=== PATIENT | female | born 2000 | race African-American/Black ===

== ENCOUNTER 2019-11-07 09:40 | Inpatient (IN) | payer OTHER ==
[~2019-11-07] VITALS: Ht 167.6 cm; Wt 63.5 kg
[2019-11-07 10:44] LABS: HEMATOCRIT. 35.5 % (36.0-48.0); HEMOGLOBIN. 12.2 g/dL (12.0-16.0); MEAN CORPUSCULAR HEMOGLOBIN 28.9 pg (28.0-32.0); MEAN CORPUSCULAR VOLUME 84.2 fL (81.0-99.0); PLATELET 318 x1000/uL (130-400); RED BLOOD CELL COUNT 4.21 mill/uL (4.2-5.4); RED CELL DISTRIBUTION WIDTH 13.9 % (11.6-14.6)
[2019-11-07 10:54] LABS: CHLORIDE 109 mEq/L (98-107)
[2019-11-07 10:55] LABS: PROTHROMBIN TIME 10.9 sec (9.6-11.0)
[2019-11-07 11:26] LABS: CLARITY URINE CLOUDY (CLEAR); COLOR URINE YELLOW (YELLOW); KETONES URINE NEGATIVE (NEGATIVE); LEUKOCYTE ESTERASE URINE 3+ (NEGATIVE); NITRITE URINE NEGATIVE (NEGATIVE); OCCULT BLOOD URINE TRACE (NEGATIVE); PROTEIN URINE NEGATIVE (NEGATIVE); SPECIFIC GRAVITY URINE 1.013 (1.005-1.030); UROBILINOGEN URINE 0.2 E.U./dL (0.2-1.0)
[2019-11-07 12:09] LABS: PLATELET ESTIMATE NORMAL
[2019-11-07] MEDS ORDERED: CEFTRIAXONE 1 G PREMIX 50 ML IV ONE (13:00)
[2019-11-07] MEDS ORDERED: MORPHINE SULFATE 4 MG/ML CPJ (NOT FOR IM USE) IV STA (13:04)
[2019-11-07] MEDS ORDERED: ONDANSETRON HCL 4MG/2ML INJ IV STA (13:04)
[2019-11-07] MEDS ORDERED: SODIUM CHLORIDE 0.9% 1000ML BAG (SEPSIS BOLUS) IV ONE (15:00)
[2019-11-07] MEDS ORDERED: MAGNESIUM/ALUMINUM HYDROXIDE/SIMETHICONE 30ML UDC PO ONE (15:00)
[2019-11-07] MEDS ORDERED: ONDANSETRON HCL 4MG/2ML INJ IV NR (15:15)
[2019-11-07] MEDS ORDERED: ACETAMINOPHEN 325MG TABLET PO STA (18:05)
[2019-11-07] MEDS ORDERED: METRONIDAZOLE 500 MG PREMIX 100 ML IV ONE (18:15)
[2019-11-07] MEDS ORDERED: SKIN ADHESIVE 0.7 GM EA TOP ONE ×2 (22:23→23:46)
[2019-11-07] MEDS ORDERED: BUPIVACAINE HCL 0.5% (5MG/ML) 50ML ONE (22:24)
[2019-11-07] MEDS ORDERED: FENTANYL CITRATE/PF 50MCG/ML 2ML VIAL ONE (22:25)
[2019-11-07] MEDS ORDERED: PROPOFOL 200MG/20ML VIAL IV ONE (22:26)
[2019-11-07] MEDS ORDERED: NEOSTIGMINE METHYLSULFATE 1MG/ML 10 ML VIAL ONE (22:26)
[2019-11-07] MEDS ORDERED: GLYCOPYRROLATE 0.2 MG/ML 2ML VIAL ONE ×2 (22:26→23:52)
[2019-11-07] MEDS ORDERED: MIDAZOLAM HCL 2 MG/2 ML VIAL ONE (22:26)
[2019-11-07] MEDS ORDERED: ROCURONIUM BROMIDE 10MG/ML VIAL 5ML IV ONE (22:26)
[2019-11-07] MEDS ORDERED: HYDROCODONE/ACETAMINOPHEN 5/325MG TABLET PO PRN ×2 (23:00)
[2019-11-07] MEDS ORDERED: ONDANSETRON HCL 4MG/2ML INJ IV PRN (23:00)
[2019-11-07] MEDS ORDERED: MORPHINE SULFATE 4 MG/ML CPJ (NOT FOR IM USE) IV PRN (23:00)
[2019-11-07] MEDS ORDERED: MORPHINE SULFATE 2 MG/ML CPJ (NOT FOR IM USE) IV PRN (23:00)
[2019-11-07] MEDS ORDERED: ONDANSETRON HCL 4MG/2ML INJ ONE (23:22)
[2019-11-07] MEDS ORDERED: DEXAMETHASONE 4MG/ML 1ML VIAL ONE (23:22)
[2019-11-07] MEDS ORDERED: DEXT 5%/0.45% NACL KCL 20MEQ/L 1,000 ML IV SCH (23:45)
[2019-11-08 01:30] VITALS: BP 117/66
[2019-11-08] MEDS ORDERED: SODIUM CHLORIDE 0.9% INJ 3ML FLUSH IVF SCH (06:00)
[2019-11-08 08:00] VITALS: BP 107/56
[2019-11-08 12:00] VITALS: BP 96/44
[2019-11-08] MEDS ORDERED: LEVO500T2 MT (12:35)
[2019-11-08] MEDS ORDERED: DEXT 5%/0.45% NACL KCL 20MEQ/L 1,000 ML IV SCH (13:00)
[2019-11-08 20:00] VITALS: BP 96/46
[2019-11-08 21:22] VITALS: BP 96/46
== END 2019-11-08 22:12 | disposition home or self-care (01) | DRG 952 ==
LOC: ER 10:00 → 6EST 22:02 → ENRESERV 22:30
PROVIDERS: ADMIT Internal Medicine; ATTEND Internal Medicine
PROC: 0DTJ4ZZ Resection of Appendix, Percutaneous Endoscopic Approach (ICD-10-PCS; principal; 2019-11-07)
DX: O99.63 Diseases of the digestive system complicating the puerperium (principal); K35.80 Unspecified acute appendicitis; E87.8 Other disorders of electrolyte and fluid balance, not elsewhere classified; O86.20 Urinary tract infection following delivery, unspecified; O90.89 Other complications of the puerperium, not elsewhere classified; O99.355 Diseases of the nervous system complicating the puerperium; G90.8 Other disorders of autonomic nervous system
CPT/HCPCS: 36415; 70480; 71045; 74177; 76705; 76830; 76856; 80053; 81003; 83605; 83880; 84484; 85025; 86850; 86900; 88304; 93005; 96365; 99285; J0696; J1100; J2250; J2270; J2405; J2704; J2710; J3010; J3490; J7030